=== PATIENT | male | born 1955 | race Caucasian/White ===

== ENCOUNTER 2024-01-20 19:20 | Emergency (ER) | payer MEDICARE, BC ==
[~2024-01-20] VITALS: Ht 185.4 cm; Wt 114.1 kg
[~2024-01-20 19:20] MED LIST: AMLO10TA13 PO; ATOR20TA66 PO; CHLO25CA10 PO; GLIP5TAB23 PO; INSU100V11 SQ; INSU100V9 SQ; LOSA25TA41 PO; MAGN400C PO; METF-1203 PO; MULT-1085 PO; PROP10TA10 PO; THIA50TA10 PO
[2024-01-20 20:28] LABS: BASOPHILS % (AUTO) 0.3 % (0-1); EOSINOPHILS # (AUTO) 0.1 X10'3 (0-0.9); EOSINOPHILS % (AUTO) 1.3 % (0-6); HEMATOCRIT 45.5 % (42.0-52.0); HEMOGLOBIN 15.1 g/dl (14.0-17.9); LYMPHOCYTES # (AUTO) 1.6 X10'3 (1.1-4.8); LYMPHOCYTES % (AUTO) 27.2 % (21-51); MEAN CORPUSCULAR HEMOGLOBIN 30.1 PG (27.0-31.0); MEAN CORPUSCULAR HGB CONC 33.2 g/dL (33.0-36.5); MEAN CORPUSCULAR VOLUME 90.7 FL (78-98); MEAN PLATELET VOLUME 8.1 FL (7.4-10.4); MONOCYTES # (AUTO) 0.6 X10'3 (0-0.9); MONOCYTES % (AUTO) 9.3 % (2-12); NEUTROPHILS # (AUTO) 3.7 X10'3 (1.8-7.7); NEUTROPHILS % (AUTO) 61.9 % (42-75); PLATELET COUNT 110 X10'3 (140-440); RED BLOOD COUNT 5.01 X10'6 (4.70-6.10); RED CELL DISTRIBUTION WIDTH 14.2 % (11.5-14.5)
[2024-01-20 20:34] VITALS: TEMP 98.6
[2024-01-20 20:49] LABS: ANION GAP 21 (8-16); BLOOD UREA NITROGEN 16 MG/DL (7-18); BUN/CREATININE RATIO 12.1 (10.0-20.0); CALCIUM 9.6 MG/DL (8.5-10.1); CHLORIDE 91 MMOL/L (99-107); CREATININE 1.32 MG/DL (0.60-1.10); GLUCOSE 256 MG/DL (70-104); POTASSIUM 3.6 MMOL/L (3.5-5.1); PRO BRAIN NATRIURETIC PEPTIDE 878 PG/ML (0-125); SODIUM 132 MMOL/L (135-145); TOTAL CARBON DIOXIDE 20.2 MMOL/L (24-32); eCRCL 60 ML/MIN; eGFR 54 ML/MIN
[2024-01-21] MEDS: normal saline 1000ml 1,000 ML IV ONE (00:10)
[2024-01-21] MEDS: normal saline 1000ML IV soln IVB ONE (00:11)
[2024-01-21 01:00] VITALS: RESP 12
[2024-01-21 02:00] VITALS: O2SAT 98
[2024-01-21 03:08] LABS: ALBUMIN 3.7 G/DL (3.4-5.0); ANION GAP 17 (8-16); BLOOD UREA NITROGEN 18 MG/DL (7-18); BUN/CREATININE RATIO 14.1 (10.0-20.0); CHLORIDE 95 MMOL/L (99-107); CREATININE 1.28 MG/DL (0.60-1.10); GLUCOSE 183 MG/DL (70-104); POTASSIUM 3.9 MMOL/L (3.5-5.1); SODIUM 133 MMOL/L (135-145); TOTAL CARBON DIOXIDE 21.1 MMOL/L (24-32); eCRCL 62 ML/MIN; eGFR 56 ML/MIN
[2024-01-21] MEDS: insulin regular, human 10 units/0.1 ml syringe IV ONE (03:48)
[2024-01-21 04:00] VITALS: BP 136/77; PULSE 101
[2024-01-21] MEDS ORDERED: ONDA-245 PO (05:22)
== END 2024-01-21 05:25 | disposition home or self-care (01) ==
LOC: ER 19:20
DX: E86.0 Dehydration (principal); E11.65 Type 2 diabetes mellitus with hyperglycemia; F10.10 Alcohol abuse, uncomplicated; I10 Essential (primary) hypertension; Z88.2 Allergy status to sulfonamides; Z79.899 Other long term (current) drug therapy; Z79.4 Long term (current) use of insulin; Z79.84 Long term (current) use of oral hypoglycemic drugs; Z60.2 Problems related to living alone
CPT/HCPCS: 36415; 71045; 80048; 82948; 83880; 84484; 85025; 93005; 96361; 96374; 99285; J1815; J7030

== ENCOUNTER 2024-05-29 07:41 | Emergency (ER) | payer MEDICARE, BC ==
[~2024-05-29] VITALS: Ht 188 cm; Wt 111.2 kg
[~2024-05-29 07:41] MED LIST changes: +ONDA-245 PO
[2024-05-29 07:52] VITALS: TEMP 97.4
[2024-05-29 08:50] LABS: BASOPHILS % (AUTO) 0.3 % (0-1); EOSINOPHILS # (AUTO) 0.1 X10'3 (0-0.9); EOSINOPHILS % (AUTO) 0.9 % (0-6); HEMATOCRIT 39.1 % (42.0-52.0); HEMOGLOBIN 12.9 g/dl (14.0-17.9); LYMPHOCYTES % (AUTO) 48.1 % (21-51); MEAN CORPUSCULAR HEMOGLOBIN 30.3 PG (27.0-31.0); MEAN CORPUSCULAR HGB CONC 32.9 g/dL (33.0-36.5); MEAN PLATELET VOLUME 6.9 FL (7.4-10.4); MONOCYTES # (AUTO) 0.6 X10'3 (0-0.9); MONOCYTES % (AUTO) 9.7 % (2-12); NEUTROPHILS # (AUTO) 2.6 X10'3 (1.8-7.7); PLATELET COUNT 190 X10'3 (140-440); RED BLOOD COUNT 4.26 X10'6 (4.70-6.10); RED CELL DISTRIBUTION WIDTH 14.6 % (11.5-14.5); WHITE BLOOD COUNT 6.3 X10'3 (4.5-11.0)
[2024-05-29 09:06] LABS: ALANINE AMINOTRANSFERASE 38 U/L (12-78); ALBUMIN 3.4 G/DL (3.4-5.0); ALBUMIN/GLOBULIN RATIO 0.7 (1.1-1.5); ALKALINE PHOSPHATASE 155 IU/L (46-116); ANION GAP 15 (8-16); ASPARTATE AMINO TRANSFERASE 44 U/L (10-37); BILIRUBIN,TOTAL 0.4 MG/DL (0.1-1.0); BLOOD UREA NITROGEN 15 MG/DL (7-18); BUN/CREATININE RATIO 20.3 (10.0-20.0); CALCIUM 8.8 MG/DL (8.5-10.1); CHLORIDE 98 MMOL/L (99-107); CREATININE 0.74 MG/DL (0.60-1.10); GLUCOSE 215 MG/DL (70-104); POTASSIUM 4.4 MMOL/L (3.5-5.1); SODIUM 139 MMOL/L (135-145); TOTAL CARBON DIOXIDE 26.4 MMOL/L (24-32); TOTAL PROTEIN 8.3 G/DL (6.4-8.2); eCRCL 110 ML/MIN; eGFR > 90 ML/MIN
[2024-05-29 09:18] LABS: ETHANOL 386 MG/DL (<10)
[2024-05-29 09:49] VITALS: BP 164/83; PULSE 107; RESP 16; O2SAT 98
== END 2024-05-29 15:31 | disposition home or self-care (01) ==
LOC: ER 07:42
DX: F10.229 Alcohol dependence with intoxication, unspecified (principal); M25.511 Pain in right shoulder; E11.9 Type 2 diabetes mellitus without complications; Z88.2 Allergy status to sulfonamides; W19.XXXA Unspecified fall, initial encounter; Y93.89 Activity, other specified; Y92.89 Other specified places as the place of occurrence of the external cause; Y99.8 Other external cause status; I10 Essential (primary) hypertension
CPT/HCPCS: 36415; 73030; 80053; 82948; 85025; 93005; 99285; G0480; 80320

== ENCOUNTER 2024-09-07 10:50 | Inpatient (IN) | payer MEDICARE, BC ==
[~2024-09-07] VITALS: Ht 188 cm; Wt 104.5 kg
[~2024-09-07 10:50] MED LIST changes: -AMLO10TA13 PO; -LOSA25TA41 PO; -METF-1203 PO
[2024-09-07 11:45] LABS: BASOPHILS % (AUTO) 0.4 % (0-1); EOSINOPHILS # (AUTO) 0.1 X10'3 (0-0.9); EOSINOPHILS % (AUTO) 1.3 % (0-6); HEMATOCRIT 37.3 % (42.0-52.0); HEMOGLOBIN 12.4 g/dl (14.0-17.9); LYMPHOCYTES # (AUTO) 1.5 X10'3 (1.1-4.8); LYMPHOCYTES % (AUTO) 32.7 % (21-51); MEAN CORPUSCULAR HEMOGLOBIN 27.8 PG (27.0-31.0); MEAN CORPUSCULAR HGB CONC 33.2 g/dL (33.0-36.5); MEAN CORPUSCULAR VOLUME 83.9 FL (78-98); MEAN PLATELET VOLUME 7.5 FL (7.4-10.4); MONOCYTES # (AUTO) 0.4 X10'3 (0-0.9); MONOCYTES % (AUTO) 8.8 % (2-12); NEUTROPHILS # (AUTO) 2.5 X10'3 (1.8-7.7); NEUTROPHILS % (AUTO) 56.8 % (42-75); PLATELET COUNT 195 X10'3 (140-440); RED BLOOD COUNT 4.45 X10'6 (4.70-6.10); RED CELL DISTRIBUTION WIDTH 16.1 % (11.5-14.5); WHITE BLOOD COUNT 4.5 X10'3 (4.5-11.0)
[2024-09-07 11:54] LABS: ALBUMIN 3.9 G/DL (3.4-5.0); ANION GAP 9 (8-16); BLOOD UREA NITROGEN 17 MG/DL (7-18); BUN/CREATININE RATIO 30.9 (10.0-20.0); CALCIUM 9.3 MG/DL (8.5-10.1); CHLORIDE 97 MMOL/L (99-107); CREATININE 0.55 MG/DL (0.60-1.10); GLUCOSE 158 MG/DL (70-104); POTASSIUM 3.4 MMOL/L (3.5-5.1); SODIUM 136 MMOL/L (135-145); TOTAL CARBON DIOXIDE 30.5 MMOL/L (24-32); eCRCL 147 ML/MIN; eGFR > 90 ML/MIN
[2024-09-07 12:25] LABS: APTT 26 SECONDS (22-32); INR 1.1 INR; PROTHROMBIN TIME 11.3 SECONDS (9.0-12.0)
[2024-09-07 12:58] LABS: ALANINE AMINOTRANSFERASE 29 U/L (12-78); ALKALINE PHOSPHATASE 116 IU/L (46-116); ASPARTATE AMINO TRANSFERASE 36 U/L (10-37); BILIRUBIN,TOTAL 1.3 MG/DL (0.1-1.0); C-REACTIVE PROTEIN 0.58 MG/DL (0.0-0.5); TOTAL PROTEIN 7.8 G/DL (6.4-8.2)
[2024-09-07] MEDS ORDERED: mag hydrox/Alum hydrox/simeth 30ml oral suspension PO PRN (15:30)
[2024-09-07] MEDS ORDERED: ondansetron/PF 4mg/2ml inj IV PRN (15:30)
[2024-09-07] MEDS ORDERED: magnesium hydroxide 30ml (MOM) UD suspension PO PRN (15:30)
[2024-09-07] MEDS ORDERED: potassium Cl 40MEQ/1/2NS 520ml 520 ML IV PRN (15:30)
[2024-09-07] MEDS ORDERED: potassium Cl 20 mEq SR tablet PO PRN (15:30)
[2024-09-07] MEDS ORDERED: acetaminophen 325mg tablet PO PRN (15:30)
[2024-09-07] MEDS ORDERED: magnesium Cl slow-release 64mg tablet PO PRN (15:30)
[2024-09-07] MEDS: clindamycin 300mg/D5W 50mL 50 ML IV STA (16:00)
[2024-09-07] MEDS: normal saline 1000ml 1,000 ML IV SCH (19:04)
[2024-09-07] MEDS: lisinopril 5mg tablet PO SCH (19:10)
[2024-09-07] MEDS ORDERED: DEXTROSE 15 GM of carb/4 tabs (each vial/BOTTLE has 4 tablets) PO PRN ×2 (19:15)
[2024-09-07] MEDS ORDERED: glucagon, human recombinant 1mg kit SUBCUT PRN (19:15)
[2024-09-07] MEDS ORDERED: dextrose 50%-water 50ml dispensing syringe IV PRN ×2 (19:15)
[2024-09-07] MEDS: K and/or MAG REPLACEMENT MC SCH (20:00)
[2024-09-07] MEDS: docusate sod 100mg capsule PO SCH (20:00)
[2024-09-07 20:15] VITALS: BP 159/89; PULSE 97; RESP 19; TEMP 97.7; O2SAT 96
[2024-09-07 20:25] VITALS: RESP 19; O2SAT 96
[2024-09-07 20:48] LABS: BILIRUBIN,URINE NEGATIVE (Neg); CLARITY,URINE CLEAR (Clear); COLOR,URINE YELLOW (Yellow); GLUCOSE, URINE 100 mg/dl (Neg); KETONES,URINE NEGATIVE (Neg); LEUKOCYTE ESTERASE ,URINE NEGATIVE (Neg); NITRITES, URINE NEGATIVE (Neg); OCCULT BLOOD,URINE NEGATIVE (Neg); PH,URINE 6.5 (4.8-8.0); PROTEIN,URINE NEGATIVE (Neg); UROBILINOGEN,URINE 0.2 E.U/dL (0.2-1.0)
[2024-09-07 20:57] LABS: UA COLLECTION TYPE CLN CATCH MIDSTREAM
[2024-09-07] MEDS: INSULIN LISPRO 100 UNIT/ML INSULN.PEN MULTI-DOSE SQ SCH (21:00)
[2024-09-07] MEDS: insulin glargine (Lantus) pen - multi-dose SQ SCH (21:55)
[2024-09-07] MEDS: potassium Cl 20 mEq SR tablet PO PRN (21:58)
[2024-09-07] MEDS: lactobacillus rhamnosus 10,000 MMU CELLS/CAPSULE PO SCH (21:58)
[2024-09-07] MEDS: heparin, porcine 5000 units/ml vial SQ SCH (21:59)
[2024-09-08] MEDS: clindamycin-Cleocin 900mg/D5W 50 ML IV SCH (00:43)
[2024-09-08 04:56] LABS: BASOPHILS % (AUTO) 0.3 % (0-1); EOSINOPHILS # (AUTO) 0.1 X10'3 (0-0.9); EOSINOPHILS % (AUTO) 1.9 % (0-6); HEMATOCRIT 31.6 % (42.0-52.0); HEMOGLOBIN 10.6 g/dl (14.0-17.9); LYMPHOCYTES % (AUTO) 40.5 % (21-51); MEAN CORPUSCULAR HEMOGLOBIN 27.9 PG (27.0-31.0); MEAN CORPUSCULAR HGB CONC 33.7 g/dL (33.0-36.5); MEAN CORPUSCULAR VOLUME 82.9 FL (78-98); MEAN PLATELET VOLUME 7.8 FL (7.4-10.4); MONOCYTES # (AUTO) 0.4 X10'3 (0-0.9); NEUTROPHILS # (AUTO) 2.5 X10'3 (1.8-7.7); NEUTROPHILS % (AUTO) 49.3 % (42-75); PLATELET COUNT 144 X10'3 (140-440); RED BLOOD COUNT 3.81 X10'6 (4.70-6.10); RED CELL DISTRIBUTION WIDTH 15.9 % (11.5-14.5)
[2024-09-08 05:20] LABS: ALANINE AMINOTRANSFERASE 25 U/L (12-78); ALBUMIN 3.1 G/DL (3.4-5.0); ALBUMIN/GLOBULIN RATIO 0.9 (1.1-1.5); ALKALINE PHOSPHATASE 96 IU/L (46-116); ANION GAP 6 (8-16); ASPARTATE AMINO TRANSFERASE 29 U/L (10-37); BILIRUBIN,TOTAL 0.9 MG/DL (0.1-1.0); BLOOD UREA NITROGEN 9 MG/DL (7-18); CALCIUM 8.7 MG/DL (8.5-10.1); CHLORIDE 102 MMOL/L (99-107); GLUCOSE 73 MG/DL (70-104); MAGNESIUM 1.4 MG/DL (1.5-2.4); POTASSIUM 3.3 MMOL/L (3.5-5.1); SODIUM 139 MMOL/L (135-145); TOTAL CARBON DIOXIDE 30.7 MMOL/L (24-32); TOTAL PROTEIN 6.4 G/DL (6.4-8.2); eCRCL 162 ML/MIN; eGFR > 90 ML/MIN
[2024-09-08 06:00] VITALS: BP 136/79; PULSE 76; RESP 19; TEMP 97.8; O2SAT 98
[2024-09-08 08:52] LABS: FERRITIN 365 NG/ML (26-388)
[2024-09-08] MEDS ORDERED: POTASSIUM CHLORIDE 20 MEQ/15 ML oral solution PO PRN (09:02)
[2024-09-08 09:08] LABS: % IRON SATURATION 31 % (11-46); IRON 66 UG/DL (53-167); TOTAL IRON BINDING CAPACITY 216 UG/DL (259-388)
[2024-09-08 10:00] VITALS: BP 136/79; PULSE 76; RESP 19; TEMP 97.8; O2SAT 98
[2024-09-08] MEDS: magnesium sulf-water 2g/50mL 50 ML IV PRN (10:11)
[2024-09-08] MEDS: POTASSIUM CHLORIDE 20 MEQ/15 ML oral solution PO PRN (13:13)
[2024-09-08] MEDS: magnesium sulf-water 4G/100mL 100 ML IV PRN (17:19)
[2024-09-08 18:00] VITALS: BP 130/72; PULSE 78; RESP 16; TEMP 98.1; O2SAT 98
[2024-09-08] MEDS: GADOTERATE MEGLUMINE 7.5 MMOL/15 ML VIAL IV ONE (19:10)
[2024-09-08 20:00] VITALS: RESP 16; O2SAT 98
[2024-09-08 22:00] VITALS: BP 134/75; PULSE 76; RESP 18; TEMP 98.1; O2SAT 97
[2024-09-09 04:35] LABS: BASOPHILS % (AUTO) 0.4 % (0-1); EOSINOPHILS # (AUTO) 0.1 X10'3 (0-0.9); EOSINOPHILS % (AUTO) 2.7 % (0-6); HEMATOCRIT 33.4 % (42.0-52.0); LYMPHOCYTES # (AUTO) 1.9 X10'3 (1.1-4.8); LYMPHOCYTES % (AUTO) 42.9 % (21-51); MEAN CORPUSCULAR HEMOGLOBIN 27.3 PG (27.0-31.0); MEAN CORPUSCULAR HGB CONC 33.1 g/dL (33.0-36.5); MEAN CORPUSCULAR VOLUME 82.7 FL (78-98); MEAN PLATELET VOLUME 7.7 FL (7.4-10.4); MONOCYTES # (AUTO) 0.4 X10'3 (0-0.9); MONOCYTES % (AUTO) 7.8 % (2-12); NEUTROPHILS # (AUTO) 2.1 X10'3 (1.8-7.7); NEUTROPHILS % (AUTO) 46.2 % (42-75); PLATELET COUNT 150 X10'3 (140-440); RED BLOOD COUNT 4.04 X10'6 (4.70-6.10); RED CELL DISTRIBUTION WIDTH 15.7 % (11.5-14.5); WHITE BLOOD COUNT 4.5 X10'3 (4.5-11.0)
[2024-09-09 04:54] LABS: ALANINE AMINOTRANSFERASE 29 U/L (12-78); ALBUMIN 3.1 G/DL (3.4-5.0); ALBUMIN/GLOBULIN RATIO 0.9 (1.1-1.5); ALKALINE PHOSPHATASE 103 IU/L (46-116); ANION GAP 6 (8-16); ASPARTATE AMINO TRANSFERASE 33 U/L (10-37); BILIRUBIN,TOTAL 0.8 MG/DL (0.1-1.0); BLOOD UREA NITROGEN 11 MG/DL (7-18); BUN/CREATININE RATIO 17.2 (10.0-20.0); CALCIUM 8.7 MG/DL (8.5-10.1); CHLORIDE 102 MMOL/L (99-107); CREATININE 0.64 MG/DL (0.60-1.10); GLUCOSE 88 MG/DL (70-104); MAGNESIUM 2.3 MG/DL (1.5-2.4); SODIUM 137 MMOL/L (135-145); TOTAL CARBON DIOXIDE 28.6 MMOL/L (24-32); TOTAL PROTEIN 6.7 G/DL (6.4-8.2); eCRCL 127 ML/MIN; eGFR > 90 ML/MIN
[2024-09-09 06:00] VITALS: BP 132/73; PULSE 78; RESP 16; TEMP 98; O2SAT 96
[2024-09-09] MEDS ORDERED: LISI5TAB22 PO (07:53)
[2024-09-09] MEDS ORDERED: CLIN-232 PO (07:53)
[2024-09-09] MEDS ORDERED: LANTUS SQ (07:53)
[2024-09-09] MEDS ORDERED: LACT1CAP26 PO (07:53)
[2024-09-09 10:00] VITALS: BP 118/67; PULSE 78; RESP 15; TEMP 97.3; O2SAT 97
== END 2024-09-09 13:00 | disposition home health service (06) | DRG 863 ==
LOC: ER 10:51 → ED HOLD 15:31 → SUR 3N 20:20
PROVIDERS: ADMIT Family Medicine; ATTEND Family Medicine
DX: T81.41XA Infection following a procedure, superficial incisional surgical site, initial encounter (principal); L03.116 Cellulitis of left lower limb; I10 Essential (primary) hypertension; E11.40 Type 2 diabetes mellitus with diabetic neuropathy, unspecified; E11.42 Type 2 diabetes mellitus with diabetic polyneuropathy; Z20.822 Contact with and (suspected) exposure to COVID-19; Y83.8 Other surgical procedures as the cause of abnormal reaction of the patient, or of later complication, without mention of misadventure at the time of the procedure; Y92.89 Other specified places as the place of occurrence of the external cause; Z88.2 Allergy status to sulfonamides; Z79.4 Long term (current) use of insulin; Z79.84 Long term (current) use of oral hypoglycemic drugs; Z79.899 Other long term (current) drug therapy; Z80.0 Family history of malignant neoplasm of digestive organs; Z85.820 Personal history of malignant melanoma of skin
CPT/HCPCS: 36415; 71045; 73700; 73723; 80053; 81003; 82728; 82948; 83540; 83550; 83605; 83735; 84132; 84145; 84484; 85025; 85610; 85651; 85730; 86140; 87040; 87081; 87502; 87503; 87811; 93005; 99291; A6446; A6449; G0378; J1644; J1815; J3475; J3490; J7030